=== PATIENT | female | born 1965 | race Caucasian/White ===

== ENCOUNTER 2017-06-18 15:56 | Emergency (ER) | payer SELFPAY, OTHER ==
[2017-06-18] MEDS: ALBUTEROL 0.083% (NEB) 2.5 MG/3 ML AMP HHN (19:04)
[2017-06-18] MEDS: IPRATROPIUM (NEB) 0.5 MG/2.5 ML AMP HHN (19:05)
[2017-06-18 21:39] LABS: ADD MAN DIFF? NO
[2017-06-18 22:15] LABS: BASOPHILS % 0.5 % (0.0-2.0); EOSINOPHILS # 0.1 10^3/ul (0.0-0.5); EOSINOPHILS % 1.2 % (0.0-7.0); HEMATOCRIT 43.2 % (37.0-47.0); LYMPHOCYTES # 2.5 10^3/ul (0.8-2.9); LYMPHOCYTES % 33.2 % (15.0-51.0); MEAN CORPUSCULAR HEMOGLOBIN 30.8 pg (29.0-33.0); MEAN CORPUSCULAR HGB CONC 34.7 g/dl (32.0-37.0); MEAN CORPUSCULAR VOLUME 88.7 fl (82.0-101.0); MEAN PLATELET VOLUME 9.2 fl (7.4-10.4); MONOCYTE # 0.7 10^3/ul (0.3-0.9); MONOCYTES % 9.1 % (0.0-11.0); NEUTROPHIL # 4.2 10^3/ul (1.6-7.5); NEUTROPHILS % 55.9 % (39.0-77.0); PLATELET COUNT 214 10^3/UL (140-415); RED BLOOD COUNT 4.87 10^6/ul (4.20-5.40); RED CELL DISTRIBUTION WIDTH 12.7 % (11.5-14.5)
[2017-06-18 22:15] LABS: WHITE BLOOD COUNT 7.5 10^3/ul (4.8-10.8)
[2017-06-18 22:41] LABS: INR 0.93; PARTIAL THROMBOPLASTIN TIME 27.3 Sec (25.0-35.0); PROTIME 12.5 Sec (11.9-14.9)
[2017-06-18 23:32] LABS: ANION GAP 16 (8-16)
[2017-06-18 23:33] LABS: BLOOD UREA NITROGEN 5 mg/dl (7-20); CALCIUM 9.1 mg/dl (8.4-10.2); CARBON DIOXIDE 32 mmol/L (21-31); CHLORIDE 96 mmol/L (97-110); CREATININE 0.62 mg/dl (0.44-1.00); GLUCOSE 132 mg/dl (70-220); POTASSIUM 3.2 mmol/L (3.5-5.1); SODIUM 141 mmol/L (135-144)
[2017-06-18 23:49] LABS: TROPONIN-I < 0.012 ng/ml (0.00-0.12)
== END 2017-06-19 00:10 | disposition home or self-care (01) ==
LOC: FTE 06-19 00:10
DX: J40 Bronchitis, not specified as acute or chronic (principal); E03.9 Hypothyroidism, unspecified; E11.9 Type 2 diabetes mellitus without complications; R06.02 Shortness of breath; Z79.84 Long term (current) use of oral hypoglycemic drugs
CPT/HCPCS: 71010; 80048; 84484; 85025; 85378; 85610; 85730; 93005; 94664; 99285-25

== ENCOUNTER 2018-04-03 11:56 | Day surgery (SDC) | payer OTHER ==
[2018-04-03] MEDS ORDERED: PROPOFOL 20 ML (13:07)
[2018-04-03] MEDS ORDERED: FENTAnyl 50 MCG/ML VIAL (13:07)
== END 2018-04-03 15:08 | disposition home or self-care (01) ==
LOC: GIL 11:56
DX: K29.70 Gastritis, unspecified, without bleeding (principal); I10 Essential (primary) hypertension; E11.9 Type 2 diabetes mellitus without complications; J45.909 Unspecified asthma, uncomplicated
CPT/HCPCS: 43239; 82962; 88305